=== PATIENT | male | born 1985 | race American Indian/Alaskan Native ===

== ENCOUNTER 2018-03-21 09:51 | Emergency (ER) | payer OTHER ==
[2018-03-21 10:26] VITALS: BP 133/88
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
[2018-03-21] MEDS ORDERED: MOTRIN PO ONE (12:37)
== END 2018-03-21 12:46 | disposition home or self-care (01) ==
LOC: ED 09:51
DX: M54.2 Cervicalgia (principal); I10 Essential (primary) hypertension; F17.200 Nicotine dependence, unspecified, uncomplicated; V89.2XXA Person injured in unspecified motor-vehicle accident, traffic, initial encounter; Y93.89 Activity, other specified; Y92.411 Interstate highway as the place of occurrence of the external cause; Y99.8 Other external cause status
CPT/HCPCS: 99282

== ENCOUNTER 2021-05-21 15:25 | Emergency (ER) | payer OTHER ==
[2021-05-21 15:58] VITALS: BP 166/94
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
== END 2021-05-21 19:09 | disposition home or self-care (01) ==
LOC: ED 15:25
DX: S01.511A Laceration without foreign body of lip, initial encounter (principal); S16.1XXA Strain of muscle, fascia and tendon at neck level, initial encounter; S83.8X1A Sprain of other specified parts of right knee, initial encounter; I10 Essential (primary) hypertension; F17.200 Nicotine dependence, unspecified, uncomplicated; G47.30 Sleep apnea, unspecified; V87.7XXA Person injured in collision between other specified motor vehicles (traffic), initial encounter; Y93.89 Activity, other specified; Y92.488 Other paved roadways as the place of occurrence of the external cause; Y99.8 Other external cause status
CPT/HCPCS: 99282